=== PATIENT | male | born 1990 ===

== ENCOUNTER 2017-07-02 18:02 | Emergency (ER) | payer SELFPAY ==
[~2017-07-02] VITALS: Ht 177.8 cm; Wt 95.3 kg
[2017-07-02 18:11] VITALS: BP 145/78
--- NOTE | 2017-07-02 19:18 | NUR ---
received report from EDGAR Orozco for [facility].
[2017-07-02] MEDS ORDERED: TDAP [DIPH/PERTUSSIS/TET] 0.5 ML VIAL IM ONE ×2 (19:27→19:30)
[2017-07-02] MEDS ORDERED: KETOROLAC TROMETHAMINE INJ 60 MG/2 ML VIAL IM ONE ×2 (19:27→19:30)
== END 2017-07-02 19:51 | disposition home or self-care (01) ==
LOC: ER 18:07
DX: S40.211A Abrasion of right shoulder, initial encounter (principal); S50.811A Abrasion of right forearm, initial encounter; S40.812A Abrasion of left upper arm, initial encounter; M25.561 Pain in right knee; M25.512 Pain in left shoulder; V23.4XXA Motorcycle driver injured in collision with car, pick-up truck or van in traffic accident, initial encounter; Y93.55 Activity, bike riding; Y92.413 State road as the place of occurrence of the external cause; Y99.8 Other external cause status
CPT/HCPCS: 90471; 90715; 96372; 99284; A4606; A6402; J1885; Z7610